=== PATIENT | female | born 1935 | race Caucasian/White ===

== ENCOUNTER → 2016-04-15 | Outpatient (CLI) | payer MEDICARE ==
[2016-04-15 08:03] LABS: CH 29.9; CHCM 32.8; HCT 44.4 % (34.0-46.0); HDW 2.35; HGB 14.3 gm/dL (11.4-16.0); MCH 29.5 pg (25.0-35.0); MCHC 32.2 g/dL (31.0-37.0); MCV 91.4 fL (80.0-100.0); Mean Platelet Volume 7.7; RBC 4.86 m/uL (3.80-5.40); RDW 13.3 % (11.5-15.5)
[2016-04-15 08:22] LABS: ALT 31 U/L (9-52); AST 30 U/L (14-36); Alkaline Phosphatase 36 U/L (38-126); Anion Gap 9 mmol/L; Blood Urea Nitrogen 17 mg/dL (7-17); Calcium 9.6 mg/dL (8.4-10.2); Carbon Dioxide 31 mmol/L (22-30); Chloride 103 mmol/L (98-107); Cholesterol 177 mg/dL (<200); Glucose 102 mg/dL (74-99); HDL Cholesterol 75 mg/dL (40-60); Non-African American GFR(MDRD) >60 (>60 ml/min/1.73 sqM); Sodium 143 mmol/L (137-145); Total Bilirubin 0.7 mg/dL (0.2-1.3); Total Protein 6.5 g/dL (6.3-8.2); Triglycerides 90 mg/dL (<150)
[2016-04-15 12:35] LABS: Hemoglobin A1C 5.6 % (4.2-6.1)
== END | disposition home or self-care (01) ==
LOC: LABWHC1 07:25
PROVIDERS: ATTEND Family Medicine
DX: I10 Essential (primary) hypertension (principal); I27.2 Other secondary pulmonary hypertension; E11.9 Type 2 diabetes mellitus without complications; E78.5 Hyperlipidemia, unspecified
CPT/HCPCS: 36415; 80053; 80061; 83036; 85027

== ENCOUNTER 2016-07-29 08:48 | Day surgery (SDC) | payer MEDICARE ==
[2016-07-29 09:31] VITALS: BP 150/76; PULSE 63; RESP 18; TEMP 97.6
--- NOTE | 2016-07-29 11:46 | US ---
ULTRASOUND GUIDED FNA CHEST WALL MASS: CLINICAL HISTORY: Palpable abnormality FINDINGS: The procedure was explained to the patient. The risks, complications, benefits and alternatives were discussed and any questions were answered. Informed consent was obtained. Patient was placed supin e on the ultrasound table and preliminary imaging demonstrated no evidence of a mass for biopsy. Biop sy therefore deferred. IMPRESSION: 1. Deferred FNA secondary to no mass seen by ultrasound. Follow-up CT scan the chest could be obtaine d for confirmation..
== END 2016-07-29 09:45 | disposition home or self-care (01) ==
LOC: RADPROMAIN 08:48
PROVIDERS: ATTEND Surgery
DX: R22.2 Localized swelling, mass and lump, trunk (principal); Z53.8 Procedure and treatment not carried out for other reasons
CPT/HCPCS: 76536

== ENCOUNTER 2016-09-04 09:42 | Day surgery (SDC) | payer MEDICARE ==
[2016-08-29 15:58] VITALS: BMI 28.3
--- NOTE | 2016-09-03 12:41 | P.GSHP ---
History of Present Illness H&P Date: 09/03/16 Chief Complaint: Right chest wall mass Patient is well known to our service. She has a history of prior bilateral breast cancer. Recently she noticed a nodule in the right chest wall. This was confirmed on physical examination. She was sent for an ultrasound-guided biopsy and unfortunately the lesion was not able to be visualized at that time. She believes the area has enlarged somewhat. Mild tenderness at times. Past Medical History Past Medical History: Asthma, Cancer, Diabetes Mellitus, Eye Disorder, GERD/ Reflux, Hyperlipidemia, Hypertension, Musculoskeletal Disorder, Sleep Apnea/CPAP /BIPAP Additional Past Medical History / Comment(s): WINST[place] BREAST CA, skin cancer, (nose) , ddd,scoliosis,uti(klebsiella pnuemoniae 10-20-13), dry eye syndrome, uses C- Pap. Developed lump on chest wall. History of Any Multi-Drug Resistant Organisms: None Reported Past Surgical History: Adenoidectomy, Appendectomy, Breast Surgery, Heart Catheterization, Hysterectomy, Orthopedic Surgery, Tonsillectomy, Tubal Ligation Additional Past Surgical History / Comment(s): left and right mastectomy, bladder suspension, [place] cataracts, bilateral rotater cuff repair. Past Anesthesia/Blood Transfusion Reactions: Previous Problems w/ Anesthesia Additional Past Anesthesia/Blood Transfusion Reaction / Comment(s): slept a lot last surgery. Past Psychological History: No Psychological Hx Reported Smoking Status: Never smoker Past Alcohol Use History: None Reported Past Drug Use History: None Reported - Past Family History Mother Family Medical History: Cancer Additional Family Medical History / Comment(s): BREAST Father Family Medical History: CVA/TIA Medications and Allergies Home Medications Medication Instructions Recorded Confirmed Type Aspirin 81 mg PO DAILY 11/15/13 08/29/16 History Atenolol 50 mg PO HS 11/15/13 08/29/16 History Calcium Carb-Vit D 250Mg-125Un 1 tab PO DAILY 11/15/13 08/29/16 History [Oscal 250+D] Cholecalciferol [Vitamin D3] 1,000 unit PO DAILY 11/15/13 08/29/16 History Denosumab [Prolia] 60 mg INJ Q182D 11/15/13 08/29/16 History Losartan-Hctz 50-12.5 mg [Hyzaar 1 tab PO DAILY 11/15/13 08/29/16 History 50-12.5] Multivitamin/Iron/Folic Acid 1 tab PO DAILY 11/15/13 08/29/16 History [Centrum Complete Multivit Tab] Simvastatin [Zocor] 20 mg PO HS 11/15/13 08/29/16 History cycloSPORINE [Restasis] 2 drop BOTH EYES DAILY 11/15/13 08/29/16 History Albuterol Sulfate [Ventolin HFA] 2 puff INHALATION QID PRN 11/23/13 08/29/16 History Artificial Tears-Hypromellose 1 drops BOTH EYES TID PRN 02/20/15 08/29/16 History [Artificial Tear Drops] Econazole Nitrate 1 applic TP DAILY PRN 02/20/15 08/29/16 History Omeprazole 40 mg PO AC-BRKFST 02/20/15 08/29/16 History Fluticasone Nasal [place] [Flonase 1 spray NASAL DAILY PRN 09/14/15 08/29/16 History Nasal [place]] Pentoxifylline [TRENtal] 400 mg PO AC-TID 07/18/16 08/29/16 History Allergies Allergy/AdvReac Type Severity Reaction Status Date / Time cefaclor [From Ceclor] Allergy Rash/Hives Verified 08/29/16 15:43 ceftriaxone sodium Allergy Unknown Verified 08/29/16 15:43 [From Rocephin] Sulfa (Sulfonamide Allergy Rash/Hives Verified 08/29/16 15:43 Antibiotics) venom-honey bee Allergy Rash/Hives Verified 08/29/16 15:43 [bee venom (honey bee)] Surgical - Exam Physical exam: General: Well-developed, well-nourished HEENT: Normocephalic, sclerae nonicteric Chest: Mass present anterior mid chest measuring 1.5 cm somewhat firm this is unrelated to the underlying rib Abdomen: Nontender, nondistended Extremities: No edema Neuro: Alert and oriented Assessment and Plan (1) Chest wall mass Narrative/Plan: Will proceed with excisional biopsy. Risks of bleeding, infection, recurrence were discussed. She understands and wishes to proceed. Status: Acute
[~2016-09-04 09:42] MED LIST: FAMOTIDINE 20 MG/2 ML VIAL IV PRN; HEPARIN SODIUM,PORCINE 5,000 UNIT/ML 1 ML VIAL SQ ONE; HYDROmorphone 1 MG/ML 1 ML SYRINGE IVP PRN; LIDOCAINE 1% 20 ML VIAL (10MG/ML) FOR IV START INTRADERMA PRN; ONDANSETRON 4 MG/2 ML VIAL IVP ONE; Pre Op ABX Message 1 EACH MISC MISCELLANE ONE
[2016-09-04 10:20] VITALS: TEMP 97.2
[2016-09-04] MEDS: LACTATED RINGERS 1,000 ML IV SCH ×2 (10:26→11:24)
[2016-09-04 10:29] LABS: Glucose,Whole Blood 91 mg/dL (75-99)
[2016-09-04] MEDS ORDERED: BUPIVACAIN-EPI 0.25%-1:200,000 30 ML VIAL SQ ONE ×2 (10:36)
[2016-09-04] MEDS ORDERED: fentaNYL (PF) 50 MCG/ML 2 ML AMP ONE (11:25)
[2016-09-04] MEDS ORDERED: PROPOFOL 10 MG/ML 20 ML VIAL IV ONE (11:25)
[2016-09-04] MEDS ORDERED: NALOXONE 0.4 MG/ML 1 ML VIAL IV PRN (12:23)
--- NOTE | 2016-09-04 12:28 | P.PCN ---
Date of Procedure: 09/04/16 Preoperative Diagnosis: Postoperative Diagnosis: Procedure(s) Performed: PREOPERATIVE DIAGNOSIS: Right chest wall mass POSTOPERATIVE DIAGNOSIS: Same PROCEDURE: Excision right chest wall mass SURGEON: Lurdes EBL: Minimal ANESTHESIA: Sedation COMPLICATIONS: None OPERATIVE PROCEDURE: Patient was placed in the operative table in the supine position. Sedated per anesthesia. The right chest was prepped and draped in usual sterile fashion. Patient had a palpable mass present along the anterior chest wall. This was roughly at the level of the third rib. A horizontal incision was made overlying the mass. The saphenous fat was dissected using electrocautery. The mass was identified and was noted to be subfascial. This was intimately associated with the pectoralis muscle. This was excised for the most part using electrocautery. The excised specimen was approximately 2 x 1 cm. There was still some additional surrounding scar tissue present. I did use ligaclips to identify the extent of our surgical excision. The specimen was sent to pathology. The subcutaneous tissues were closed using 3-0 Vicryl sutures. The skin was closed using 4-0 Monocryl sutures. Steri-Strips and sterile dressings were applied. DISPOSITION: Stable to recovery room Implants: Indications for Procedure: Operative Findings: Description of Procedure:
[2016-09-04 12:45] VITALS: PULSE 63
[2016-09-04 13:06] VITALS: BP 169/76; RESP 16
== END 2016-09-04 13:22 | disposition home or self-care (01) ==
LOC: OR 09:42
PROVIDERS: ATTEND Surgery
DX: C76.1 Malignant neoplasm of thorax (principal); R22.2 Localized swelling, mass and lump, trunk; Z85.3 Personal history of malignant neoplasm of breast; Z90.13 Acquired absence of bilateral breasts and nipples; Z85.828 Personal history of other malignant neoplasm of skin; J45.909 Unspecified asthma, uncomplicated; E11.9 Type 2 diabetes mellitus without complications; K21.9 Gastro-esophageal reflux disease without esophagitis; E78.5 Hyperlipidemia, unspecified; I10 Essential (primary) hypertension; G47.33 Obstructive sleep apnea (adult) (pediatric); Z79.82 Long term (current) use of aspirin; Z79.899 Other long term (current) drug therapy; Z88.2 Allergy status to sulfonamides; Z88.1 Allergy status to other antibiotic agents; Z91.030 Bee allergy status
CPT/HCPCS: 88305; 88342; 88341; 11602; 12031; J1644; J2405; J3010; J2704

== ENCOUNTER → 2016-09-28 | Outpatient (CLI) | payer MEDICARE ==
--- NOTE | 2016-09-30 09:03 | PE ---
Nuclear medicine PET/CT HISTORY: Breast cancer, C 50 111 Patient received 11.2 mCi F-18 FDG intravenously. Delayed scanning performed from the skull base to t he mid thighs. Localization and attenuation correction CT scan was performed. No recent exams for comparisons Neck and chest: There is no adenopathy evident. No evident lung mass. Postop changes are noted status post mastectomies. No pleural or pericardial effusion. There is a spinal curvature. At the level of patient's mastectomy site on the right there is some mild hypermetabolic uptake but no definite focal mass, SUV is 2.5. No other suspicious hypermetabolic uptake. Abdomen pelvis: No retroperitoneal adenopathy. No free fluid or pelvic adenopathy. Uptake within the rectum is thought likely to be physiologic. There is a focus of uptake seen in the right hemipelvis t hought likely to represent ureteral activity. Osseous structures: Marked degenerative disc changes are noted within the spine. Facet arthropathy is noted at multiple levels especially in the lower lumbar spine. Uptake within the shoulders thought t o be benign. IMPRESSION: Uptake in the surgical bed in the right anterior chest may be inflammatory. No other susp icious hypermetabolic uptake. Additional findings above.
== END | disposition home or self-care (01) ==
LOC: RADPETMAIN 15:59
PROVIDERS: ATTEND Internal Medicine Hematology & Oncology
DX: C50.111 Malignant neoplasm of central portion of right female breast (principal)
CPT/HCPCS: 78815; A9552

== ENCOUNTER → 2016-10-03 | Outpatient (CLI) | payer MEDICARE ==
--- NOTE | 2016-10-05 13:26 | PCN ---
80-year-old lady had been followed at the sleep center for treatment of obstructive sleep apnea hypopnea syndrome. The patient continued to use her CPAP equipment but recently developed some problem related to mostly humidity. She has collection of the water in her nasal pillow mask and sometimes water goes to her nose. She could hear some additional sounds sometimes during using her CPAP unit. I checked her CPAP unit. Pressure is 7 cm of water. Usage is 19/30 more than four hours. Average 5.1 hours. Humidity at the level of more than 5. Machine does not give me information about HI. Her sleepiness scale today is 10. MEDICATIONS: Aspirin, atenolol, Citracal, Centrum silver, losartan, omeprazole , Prolia, Pentoxifylline, Restasis, simvastatin, Ventolin inhaler, econazole, vitamin D3. During physical exam the patient in distress. BP 125/66, HR of 64, respiratory rate 16, height 5 feet 1/2 inch, weight 166, BMI 31.0, temp 97.8, oxygen saturation on room air 95%. Extremely low position of soft palate. Abdomen is slightly obese. Other physical exam normal. IMPRESSION: 1. Obstructive sleep apnea hypopnea syndrome. Patient continued to use equipment benefitting from treatment. Has some problem related to humidification. 2. Mild obesity. 3. Hypertension. 4. History of asthma. 5. Diabetes mellitus. 6. Acid reflux. 7. History of breast cancer status post bilateral mastectomy. PLAN: 1. Patient to continue to use her CPAP equipment every night for the full night. 2. Presently machine staying on the level of her head. She will put it down about a foot with the height of position of her machine. 3. I adjusted the humidity in the machine down to the level of 2. 4. If patient has any problem with the usage of CPAP or with the machine she will contact us. 5. Prescription for all necessary CPAP supplies including mask, tube, filters. Thank you very much for allowing me to participate in the management of your patient. ANGEL
== END | disposition home or self-care (01) ==
LOC: SLEEP 09:52
PROVIDERS: ATTEND Internal Medicine
DX: G47.33 Obstructive sleep apnea (adult) (pediatric) (principal); E66.9 Obesity, unspecified; I10 Essential (primary) hypertension; E11.9 Type 2 diabetes mellitus without complications; K21.9 Gastro-esophageal reflux disease without esophagitis; Z85.3 Personal history of malignant neoplasm of breast; Z90.13 Acquired absence of bilateral breasts and nipples; Z87.09 Personal history of other diseases of the respiratory system; Z79.82 Long term (current) use of aspirin

== ENCOUNTER → 2016-10-18 | Outpatient (CLI) | payer MEDICARE ==
[~2016-10-18] MED LIST changes: +DENOSUMAB 60 MG/ML 1 ML SYRINGE SQ NR; -FAMOTIDINE 20 MG/2 ML VIAL IV PRN; -HEPARIN SODIUM,PORCINE 5,000 UNIT/ML 1 ML VIAL SQ ONE; -HYDROmorphone 1 MG/ML 1 ML SYRINGE IVP PRN; -LIDOCAINE 1% 20 ML VIAL (10MG/ML) FOR IV START INTRADERMA PRN; -ONDANSETRON 4 MG/2 ML VIAL IVP ONE; -Pre Op ABX Message 1 EACH MISC MISCELLANE ONE
[2016-10-18 12:42] VITALS: BP 151/82; PULSE 80; RESP 16; TEMP 98.4
== END | disposition home or self-care (01) ==
LOC: PROCWHC3 12:31
PROVIDERS: ATTEND Family Medicine
DX: M81.0 Age-related osteoporosis without current pathological fracture (principal)
CPT/HCPCS: 96372; J0897

== ENCOUNTER → 2016-10-18 | Outpatient (CLI) | payer MEDICARE ==
[2016-10-18 07:47] LABS: CH 30.4; CHCM 33.9; HCT 43.5 % (34.0-46.0); MCHC 34.5 g/dL (31.0-37.0); Mean Platelet Volume 7.8; RBC 4.83 m/uL (3.80-5.40); RDW 13.4 % (11.5-15.5); WBC 4.8 k/uL (3.8-10.6)
[2016-10-18 08:02] LABS: ALT 23 U/L (9-52); AST 27 U/L (14-36); Alkaline Phosphatase 35 U/L (38-126); Anion Gap 10 mmol/L; Blood Urea Nitrogen 18 mg/dL (7-17); Calcium 9.6 mg/dL (8.4-10.2); Carbon Dioxide 27 mmol/L (22-30); Chloride 106 mmol/L (98-107); Cholesterol 183 mg/dL (<200); Glucose 101 mg/dL (74-99); HDL Cholesterol 81 mg/dL (40-60); Non-African American GFR(MDRD) >60 (>60 ml/min/1.73 sqM); Sodium 143 mmol/L (137-145); Total Bilirubin 0.9 mg/dL (0.2-1.3); Total Protein 6.6 g/dL (6.3-8.2); Triglycerides 95 mg/dL (<150)
== END | disposition home or self-care (01) ==
LOC: LABWHC1 07:18
PROVIDERS: ATTEND Family Medicine
DX: C50.919 Malignant neoplasm of unspecified site of unspecified female breast (principal); I10 Essential (primary) hypertension; M81.0 Age-related osteoporosis without current pathological fracture
CPT/HCPCS: 36415; 80053; 80061; 82306; 85027

== ENCOUNTER → 2017-04-21 | Outpatient (CLI) | payer MEDICARE ==
[~2017-04-21] MED LIST changes: -DENOSUMAB 60 MG/ML 1 ML SYRINGE SQ NR; +DENOSUMAB 60 MG/ML 1 ML SYRINGE SQ ONE
[2017-04-21 12:30] VITALS: BP 143/85; PULSE 60; RESP 18; TEMP 97.9
== END | disposition home or self-care (01) ==
LOC: PROCWHC3 12:14
PROVIDERS: ATTEND Family Medicine
DX: M81.0 Age-related osteoporosis without current pathological fracture (principal)
CPT/HCPCS: 96372; J0897

== ENCOUNTER → 2017-09-11 | Outpatient (CLI) | payer MEDICARE ==
--- NOTE | 2017-09-11 13:08 | SFUN ---
SLEEP CENTER FOLLOW UP NOTE DATE OF SERVICE: 09/11/2017 An 81-year-old lady has been followed in sleep center for treatment of obstructive sleep apnea-hypopnea syndrome. Patient successfully continued to use her CPAP equipment every night without any significant problems. She is getting her supplies. No snoring with the machine. [place] Sleepiness Scale is 9. MEDICATIONS: Aspirin, atenolol, Centrum Silver, , losartan hydrochlorothiazide, ketoconazole cream, Prolia, , Restasis, simvastatin, Ventolin inhaler. PHYSICAL EXAMINATION: During physical exam, patient in no distress VITAL SIGNS: BP 125/71, HR 64, RR 16, height 5 feet 1-1/2 inches, weight 163, BMI 30.2, temperature 96.8, oxygen saturation room air 95%. HEENT: PERRLA, EOMI. Oropharynx low position of soft palate. NECK: Supple, no JVD. Thyroid is not palpable. LUNGS: Clear to percussion and to auscultation. Good air exchange. No wheezing or rhonchi. HEART: S1, S2 regular. No murmurs, gallops, or rubs. ABDOMEN: Slightly obese. EXTREMITIES No clubbing or cyanosis. CLOTH FINISHING RANGE TENDER Awake, alert, and oriented X3. Cranial nerves 2 to 7 intact. There is no fasciculation or atrophy. noted. No focal deficits observed. IMPRESSION: 1. Obstructive sleep apnea-hypopnea syndrome. Patient continued to use her CPAP equipment, benefitting from treatment. 2. Mild obesity. 3. Hypertension. 4. History of asthma. 5. History of diabetes mellitus, presently her medication for diabetes was stopped. Blood sugar improved. 6. History of acid reflux. 7. History of breast cancer, status post bilateral mastectomy. 8. Status post tonsillectomy, adenoidectomy. 9. Status post total hysterectomy. 10.Status post bladder repair. 11.Status post nasal surgery for cancer. 12.Status post left shoulder surgery. 13.Status post left eye cataract surgery. PLAN: 1. Continue treatment with CPAP every night for the whole night. 2. Prescription for all necessary CPAP supplies including mask, tube, filters. 3. Watching weight. 4. Sleep hygiene with regular time in bed for at least 8 hours. 5. No driving if feeling any sleepiness. 6. Follow-up visit in 1 year or earlier if patient has any problems. Thank you very much for allowing me to participate in management of your patient. Sincerely, Darrel Brown MD, PhD, FAASM Diplomat of [employer] Digital Traffic Coordinator of [facility] [place] HALLIE / SILVIA: [phone] /
== END | disposition home or self-care (01) ==
LOC: SLEEP 11:29
PROVIDERS: ATTEND Internal Medicine
DX: G47.33 Obstructive sleep apnea (adult) (pediatric) (principal); E66.9 Obesity, unspecified; I10 Essential (primary) hypertension; J45.909 Unspecified asthma, uncomplicated; E11.9 Type 2 diabetes mellitus without complications; K21.9 Gastro-esophageal reflux disease without esophagitis; Z85.3 Personal history of malignant neoplasm of breast; Z79.899 Other long term (current) drug therapy; Z90.13 Acquired absence of bilateral breasts and nipples; Z79.82 Long term (current) use of aspirin; Z90.89 Acquired absence of other organs; Z98.890 Other specified postprocedural states; Z99.89 Dependence on other enabling machines and devices; Z90.710 Acquired absence of both cervix and uterus; Z85.9 Personal history of malignant neoplasm, unspecified; Z68.30 Body mass index [BMI] 30.0-30.9, adult; Z79.51 Long term (current) use of inhaled steroids

== ENCOUNTER → 2017-10-17 | Outpatient (CLI) | payer MEDICARE ==
[2017-10-17 07:53] LABS: Basophils % (A) 0 %; Eosinophils # (A) 0.1 k/uL (0-0.7); Eosinophils % (A) 1 %; HCT 42.6 % (34.0-46.0); HGB 14.2 gm/dL (11.4-16.0); Lymphocytes # (A) 1.1 k/uL (1.0-4.8); Lymphocytes % (A) 19 %; MCH 30.6 pg (25.0-35.0); MCHC 33.2 g/dL (31.0-37.0); Mean Platelet Volume 6.7; Monocytes # (A) 0.4 k/uL (0-1.0); Monocytes % (A) 7 %; Neutrophils # (A) 4.2 k/uL (1.3-7.7); Neutrophils % (A) 71 %; Platelet Count 222 k/uL (150-450); RBC 4.63 m/uL (3.80-5.40); RDW 13.9 % (11.5-15.5); WBC 5.9 k/uL (3.8-10.6)
[2017-10-17 08:01] LABS: ALT 23 U/L (9-52); AST 21 U/L (14-36); Albumin 3.9 g/dL (3.5-5.0); Alkaline Phosphatase 28 U/L (38-126); Anion Gap 5 mmol/L; Blood Urea Nitrogen 21 mg/dL (7-17); Calcium 9.6 mg/dL (8.4-10.2); Carbon Dioxide 31 mmol/L (22-30); Chloride 103 mmol/L (98-107); Cholesterol 203 mg/dL (<200); Glucose 92 mg/dL (74-99); HDL Cholesterol 103 mg/dL (40-60); LDL Cholesterol,Calculated 84 mg/dL (0-99); Potassium 3.8 mmol/L (3.5-5.1); Sodium 139 mmol/L (137-145); Total Bilirubin 0.7 mg/dL (0.2-1.3); Total Protein 6.1 g/dL (6.3-8.2); Triglycerides 78 mg/dL (<150)
[2017-10-17 08:17] LABS: T4, Free (Free Thyroxine) 0.92 ng/dL (0.78-2.19)
[2017-10-17 18:54] LABS: Hemoglobin A1C 5.9 % (4.0-6.0)
== END | disposition home or self-care (01) ==
LOC: LABWHC1 07:25
PROVIDERS: ATTEND Family Medicine
DX: E11.9 Type 2 diabetes mellitus without complications (principal); E78.5 Hyperlipidemia, unspecified; I10 Essential (primary) hypertension
CPT/HCPCS: 36415; 80053; 80061; 83036; 84439; 84443; 85025

== ENCOUNTER → 2018-06-19 | Outpatient (CLI) | payer MEDICARE ==
[~2018-06-19] MED LIST changes: +DENOSUMAB 60 MG/ML 1 ML SYRINGE SQ NR; -DENOSUMAB 60 MG/ML 1 ML SYRINGE SQ ONE
[2018-06-19 12:23] VITALS: BP 148/80; PULSE 65; RESP 16; TEMP 97.5
== END | disposition home or self-care (01) ==
LOC: PROCWHC3 12:05
PROVIDERS: ATTEND Family Medicine
DX: M81.0 Age-related osteoporosis without current pathological fracture (principal)
CPT/HCPCS: 96372; J0897

== ENCOUNTER → 2018-08-12 | Outpatient (CLI) | payer MEDICARE ==
--- NOTE | 2018-08-12 16:13 | PN ---
PROGRESS NOTE DATE OF SERVICE: 08/12/2018 82-year-old lady has been followed in Sleep Center for treatment of obstructive sleep apnea-hypopnea syndrome. Patient continued to use her CPAP equipment successfully every night for the whole night. No snoring with the machine. [place] Sleepiness Scale today is 9. MEDICATIONS: Aspirin, atenolol, Centrum Silver, losartan, Ketoconazole cream, Restasis, Simvastatin, Ventolin inhaler. PHYSICAL EXAM: Patient in no distress. BP is 136/68, HR 62, RR 16, height 5 feet 1 inch, weight 155 pounds. Body mass index 29.2, temperature 97.1, oxygen saturation at room air 96%. Oropharynx low position of soft palate. NECK Supple, no JVD. Thyroid is not palpable. LUNGS Clear to percussion and to auscultation. Good air exchange. No wheezing or rhonchi. HEART S1, S2 regular. No murmurs, gallops, or rubs. ABDOMEN Soft and nontender. Bowel sounds are present. No organomegaly appreciated. EXTREMITIES No clubbing or cyanosis. MAP MOUNTER Awake, alert, and oriented X3. Cranial nerves 2 to 7 intact. There is no fasciculation or atrophy. noted. No focal deficits observed. IMPRESSION: 1. Obstructive sleep apnea-hypopnea syndrome. Patient continued to use her CPAP equipment benefitting from treatment. The patient does not have indicator for apnea-hypopnea index. 2. Hypertension. 3. History of asthma. 4. History of diabetes mellitus, presently not on medications for diabetes. Blood sugar improved. 5. History of acid reflux. 6. History of breast carcinoma status post bilateral mastectomy. 7. Status post tonsillectomy and adenoidectomy. 8. Status post total hysterectomy. 9. Status post bladder repair. 10.Status post nasal surgery for cancer. 11.Status post left shoulder surgery. 12.Status post left eye cataract surgery. PLAN: 1. Patient will continue to use CPAP equipment every night. 2. Prescription for new CPAP unit with a pressure of 7 cm of water average. 3. Losing weight. 4. Sleep hygiene with regular time in bed for at least 8 hours. 5. No driving if feeling sleepiness. 6. I will see patient in 1 month after she will get new CPAP unit to evaluate clinical response on treatment and check apnea-hypopnea index reading. Thank you very much for allowing me to participate in management of your patient. Sincerely, Darrel Brown MD, PhD, FAASM Diplomat of [employer] Sub Assembly Team Worker of [facility] [place] MMMAKAYLA / SILVIA: [phone] /
== END | disposition home or self-care (01) ==
LOC: SLEEP 13:47
PROVIDERS: ATTEND Internal Medicine
DX: G47.33 Obstructive sleep apnea (adult) (pediatric) (principal); I10 Essential (primary) hypertension; Z87.09 Personal history of other diseases of the respiratory system; Z86.39 Personal history of other endocrine, nutritional and metabolic disease; Z87.19 Personal history of other diseases of the digestive system; Z85.3 Personal history of malignant neoplasm of breast; Z99.89 Dependence on other enabling machines and devices; Z90.13 Acquired absence of bilateral breasts and nipples; Z90.09 Acquired absence of other part of head and neck; Z90.710 Acquired absence of both cervix and uterus; Z98.42 Cataract extraction status, left eye; Z98.890 Other specified postprocedural states; Z79.82 Long term (current) use of aspirin; Z79.899 Other long term (current) drug therapy

== ENCOUNTER → 2018-12-08 | Outpatient (CLI) | payer MEDICARE ==
--- NOTE | 2018-12-08 10:39 | BD ---
EXAMINATION TYPE: Axial Bone Density DATE OF EXAM: 12/08/2018 COMPARISON: 04/30/2017 CLINICAL HISTORY: C 50.111, Z 79.890 Height: 62 Weight: 146.8 FRAX RISK QUESTIONS: Alcohol (3 or more units per day): no Family History (Parent hip fracture): no Glucocorticoids (More than 3mos): no (Ex: prednisone, prednisolone, methylprednisolone, dexamethasone, and hydrocortisone). History of Fracture in Adulthood: no Secondary Osteoporosis: 1. Type 1 Diabetes: no 2. Hyperthyroidism: no 3. Menopause before 45: no 4. Malnutrition: no 5. Chronic liver disease: no Rheumatoid Arthritis: yes Current Tobacco Use: no RISK FACTORS HISTORY OF: Hip Fracture (Right/Left): right leg/hip When: as a child Surgery to Spine/Hip(right/left)/Wrist (right/left): no Family History of Osteoporosis: no Active: yes Diet low in dairy products/other sources of calcium: no Postmenopausal woman: Lost more than 2 inches in height since high school: yes MEDICATIONS: atenolol, femara, aricept, aspirin, vitamins, losartan, restasis, simvastatin, inhaler Osteoporosis Medications: prolia How Lon months Additional History: bradley breast cancer 1992and 2008 EXAM MEASUREMENTS: Bone mineral densitometry was performed using the Pie Digital System. Bone mineral density as measured about the Lumbar spine is: ----- L1-L4(G/cm2): 1.360 T Score Values are as follows: ----- L2: -0.4 ----- L3: 3.8 ----- L4: 0.8 ----- L1-L4: 1.5 Bone mineral density has: decreased -1.4 % since study of: 04.30.2017 Bone mineral density about the L hip (g/cm2): 0.907 T Score values are as follows: -----L Neck: -0.9 -----L Total: -1.0 Bone mineral density has: decreased -3.2 % since study of: 04.30.2017 IMPRESSION: Normal (Values between +1 and -1 indicate normal bone mass). Consider repeating this study in 5 year s or sooner if there is some new clinical indication. NOTE: T-SCORE=SD OF THE YOUNG ADULT MEAN.
== END ==
LOC: RADBDWWP 08:03
PROVIDERS: ATTEND Internal Medicine Hematology & Oncology
DX: C50.111 Malignant neoplasm of central portion of right female breast (principal); N95.1 Menopausal and female climacteric states; Z79.890 Hormone replacement therapy
CPT/HCPCS: 77080

== ENCOUNTER → 2018-12-18 | Outpatient (CLI) | payer MEDICARE ==
--- NOTE | 2018-12-18 16:26 | XR ---
EXAMINATION TYPE: XR Hip Bilateral and AP pelvis DATE OF EXAM: 12/18/2018 COMPARISON: NONE HISTORY: Pain and osteoporosis TECHNIQUE: A single AP view of the pelvis is obtained. Two views of the bilateral hip are obtained. FINDINGS: There is a scoliotic curvature in the lumbar spine. Dense vascular calcifications are note d in aortoiliac distribution. Bone mineralization is reduced. There is no acute fracture/dislocation evident in the pelvis. The hip and sacroiliac joints appear symmetric and unremarkable. The overlyi ng soft tissue appears unremarkable. Two views of the lateral hips show no acute fracture or dislocation. No focal lytic or sclerotic les ion seen in the proximal bilateral femurs. The overlying soft tissue is unremarkable. IMPRESSION: There is no acute fracture or dislocation in the pelvis or bilateral hips. MRI of the kee mbar spine, hips may be of benefit.
== END | disposition home or self-care (01) ==
LOC: LABWHC1 11:35
PROVIDERS: ATTEND Nurse Practitioner Adult Health
DX: C50.111 Malignant neoplasm of central portion of right female breast (principal); E11.9 Type 2 diabetes mellitus without complications; J45.909 Unspecified asthma, uncomplicated
CPT/HCPCS: 73521

== ENCOUNTER → 2018-12-21 | Outpatient (CLI) | payer MEDICARE ==
[2018-12-21 11:56] VITALS: BP 148/72; PULSE 56; RESP 15; TEMP 97.5
== END ==
LOC: PROCWHC3 11:51
PROVIDERS: ATTEND Family Medicine
DX: M81.0 Age-related osteoporosis without current pathological fracture (principal)
CPT/HCPCS: 96372; J0897

== ENCOUNTER → 2019-04-30 | Outpatient (CLI) | payer MEDICARE ==
[2019-04-30 18:20] LABS: Chol/HDL Ratio 2.08; LDL Cholesterol,Calculated 83.4 mg/dL (0.0-131.0); VLDL Calculation 12.6 mg/dL (5.00-40.00)
== END | disposition home or self-care (01) ==
LOC: LABWHC1 07:23
PROVIDERS: ATTEND Internal Medicine Cardiovascular Disease
DX: E78.2 Mixed hyperlipidemia (principal)
CPT/HCPCS: 36415; 80061; 84450; 84460

== ENCOUNTER → 2020-01-06 | Outpatient (CLI) | payer MEDICARE ==
--- NOTE | 2020-01-07 06:08 | SFUN ---
SLEEP CENTER FOLLOW UP NOTE DATE OF SERVICE: 01/06/2020 An 84-year-old lady has been followed in Sleep Center for treatment of obstructive sleep apnea-hypopnea syndrome. Patient continued to use her CPAP equipment. According to her, she sleeps well. [place] Sleepiness Scale during the day increased to 11. I checked her CPAP unit. Range of the pressure 5-10. Average pressure 9.9. Subsequently, it is very close to the maximal pressure. Usage is 30 out of 30 nights but only 8/30 nights more than 4 hours. Average usage is 3.7 hours per night. Leak is 40 L/minute, which is high. Apnea-hypopnea index reading 35.2, which is very high level of apnea-hypopnea index. MEDICATIONS: Aricept 10 mg at night, aspirin 81 mg once daily, atenolol 50 mg once daily, losartan hydrochlorothiazide once daily, pentoxifylline 400 mg 3 times a day, Restasis eyedrops, simvastatin 20 mg at night. PHYSICAL EXAMINATION: GENERAL: lady without distress. VITAL SIGNS: BP 153/71, HR 59, RR 16, height 5 feet 1 inch, weight 142.4, BMI 26.8, temperature 98.0, oxygen saturation at room air 98%. HEENT: PERRLA, EOMI. Evaluation of oropharynx showed low position of soft palate. NECK: Supple, no JVD. Thyroid is not palpable. LUNGS: Clear to percussion and to auscultation. Good air exchange. No wheezing or rhonchi. HEART: S1, S2 regular. No murmurs, gallops, or rubs. ABDOMEN: Soft and nontender. Bowel sounds are present. No organomegaly appreciated. EXTREMITIES: No clubbing or cyanosis. CERTIFIED MASSAGE THERAPIST: Awake, alert, and oriented X3. Cranial nerves 2 to 7 intact. There is no fasciculation or atrophy. noted. No focal deficits observed. IMPRESSION: 1. Obstructive sleep apnea-hypopnea syndrome. The patient using equipment every night but not always for a long period of time. Apnea-hypopnea index significantly increased. 2. Hypertension. 3. History of asthma. 4. History of diabetes mellitus. 5. History of acid reflux. 6. History of breast carcinoma, status post bilateral mastectomy. 7. Status post tonsillectomy and adenoidectomy. 8. Status post total hysterectomy. 9. Status post bladder repair. 10.Status post nasal surgery for cancer. 11.Status post left shoulder surgery. 12.Status post left eye cataract surgery. PLAN: 1. I changed regimen in the machine, automatic regimen with range of the pressure 5 to 15. 2. Patient will continue to use PAP equipment every night for the whole night. 3. Sleep hygiene with regular time in bed for at least 7-1/2 to 8 hours. 4. Precautions related to driving. No driving if feeling sleepiness. 5. I will maintain all necessary prescription for PAP supplies including mask, tube, filters. 6. Watching weight. 7. No driving if feeling sleepiness. 8. Follow-up visit in 2 to 3 months or earlier if patient has any problems. Thank you very much for allowing me to participate in management of your patient. Sincerely, Darrel Brown MD, PhD, FAASM Diplomat of [employer] Cut Off Machine Operator of [facility] [place] MMODL / SHANEKAN: [phone] /
== END | disposition home or self-care (01) ==
LOC: SLEEP 14:18
PROVIDERS: ATTEND Internal Medicine
DX: G47.33 Obstructive sleep apnea (adult) (pediatric) (principal); I10 Essential (primary) hypertension; Z99.89 Dependence on other enabling machines and devices; Z87.09 Personal history of other diseases of the respiratory system; Z87.19 Personal history of other diseases of the digestive system; Z90.710 Acquired absence of both cervix and uterus; Z90.13 Acquired absence of bilateral breasts and nipples; Z90.49 Acquired absence of other specified parts of digestive tract; Z98.890 Other specified postprocedural states

== ENCOUNTER 2020-02-20 10:57 | Emergency (ER) | payer MEDICARE ==
[2020-02-20 11:05] VITALS: RESP 18; TEMP 97.9
[2020-02-20] MEDS ORDERED: MORPHINE SULFATE 4 MG/ML SYRINGE IM STA (11:16)
--- NOTE | 2020-02-20 11:19 | ED ---
Fall HPI - General Chief Complaint: Fall Stated Complaint: Fall Time Seen by Provider: 02/20/20 11:04 Source: patient, RN notes reviewed, old records reviewed Mode of arrival: EMS - History of Present Illness Initial Comments: Patient is a pleasant 84-year-old female who presents to the emergency department today after she slipped and fell in the shower. Patient reports that she slipped on the tub that landing on her left shoulder. She complains of no significant head injury does complain of minor neck pain and pain with range of motion of left shoulder. Patient reports that she's had no history of blood thinners. She reports shoulder injury from years ago. She states that she's had no other complaints. - Related Data Home Medications Medication Instructions Recorded Confirmed Aspirin 81 mg PO DAILY 11/15/13 12/21/18 Atenolol 50 mg PO HS 11/15/13 12/21/18 Denosumab [Prolia] 60 mg INJ Q182D 11/15/13 12/21/18 Losartan-Hctz 50-12.5 mg [Hyzaar 1 tab PO DAILY 11/15/13 12/21/18 50-12.5] Multivitamin/Iron/Folic Acid 1 tab PO DAILY 11/15/13 12/21/18 [Centrum Complete Multivit Tab] Simvastatin [Zocor] 20 mg PO HS 11/15/13 12/21/18 cycloSPORINE [Restasis] 2 drop BOTH EYES DAILY 11/15/13 12/21/18 Artificial Tears-Hypromellose 1 drops BOTH EYES TID PRN 02/20/15 12/21/18 [Artificial Tear Drops] Pentoxifylline [TRENtal] 400 mg PO AC-TID 07/18/16 12/21/18 Acetaminophen [Tylenol Arthritis] 650 mg PO Q8HR PRN 06/19/18 12/21/18 Donepezil [Aricept] 10 mg PO HS 06/19/18 12/21/18 Letrozole [Femara] 2.5 mg PO DAILY 06/19/18 12/21/18 Albuterol Sulfate [Proair Hfa] 1 - 2 puff INHALATION Q6HR PRN 12/21/18 12/21/18 Cholecalciferol (Vitamin D3) 2,000 unit PO DAILY 12/21/18 12/21/18 [Vitamin D3] Previous Rx's Medication Instructions Recorded Acetaminophen-Codeine 300-30mg 1 tab PO Q6H PRN 3 Days #12 tablet 02/20/20 [Tylenol w/codeine #3] Allergies Allergy/AdvReac Type Severity Reaction Status Date / Time cefaclor [From Ceclor] Allergy Rash/Hives Verified 02/20/20 12:32 ceftriaxone sodium Allergy Unknown Verified 02/20/20 12:32 [From Rocephin] Sulfa (Sulfonamide Allergy Rash/Hives Verified 02/20/20 12:32 Antibiotics) venom-honey bee Allergy Rash/Hives Verified 02/20/20 12:32 [bee venom (honey bee)] Review of Systems ROS Statement: Those systems with pertinent positive or pertinent negative responses have been documented in the HPI. ROS Other: All systems not noted in ROS Statement are negative. Past Medical History Past Medical History: Asthma, Cancer, Diabetes Mellitus, Eye Disorder, GERD/Reflux, Hyperlipidemia, Hypertension, Musculoskeletal Disorder, Sleep Apnea/CPAP/BIPAP Additional Past Medical History / Comment(s): WINST[place] BREAST CA, skin cancer, (nose), ddd,scoliosis,uti(klebsiella pnuemoniae 10-20-13), dry eye syndrome, uses C-Pap. Developed lump on chest wall.- august 2016- radiation treatments History of Any Multi-Drug Resistant Organisms: None Reported Past Surgical History: Adenoidectomy, Appendectomy, Breast Surgery, Heart Catheterization, Hysterectomy, Orthopedic Surgery, Tonsillectomy, Tubal Ligation Additional Past Surgical History / Comment(s): left and right mastectomy, bladder suspension, [place]ston cataracts, bilateral rotater cuff repair. Past Anesthesia/Blood Transfusion Reactions: Previous Problems w/ Anesthesia Additional Past Anesthesia/Blood Transfusion Reaction / Comment(s): slept a lot last surgery. Past Psychological History: No Psychological Hx Reported Smoking Status: Never smoker Past Alcohol Use History: None Reported Past Drug Use History: None Reported - Past Family History Mother Family Medical History: Cancer Additional Family Medical History / Comment(s): BREAST Father Family Medical History: CVA/TIA General Exam - General Exam Comments Initial Comments: 84-year-old female. Alert and oriented 3. No distress. Limitations: no limitations General appearance: alert, in no apparent distress Head exam: Present: atraumatic, normocephalic, normal inspection Eye exam: Present: normal appearance, PERRL, EOMI. Absent: scleral icterus, conjunctival injection, periorbital swelling ENT exam: Present: normal exam, mucous membranes moist Neck exam: Present: normal inspection. Absent: tenderness, meningismus, lymphadenopathy Respiratory exam: Present: normal lung sounds bilaterally. Absent: respiratory distress, wheezes, rales, rhonchi, stridor Cardiovascular Exam: Present: regular rate GI/Abdominal exam: Present: soft, normal bowel sounds. Absent: distended, te nderness, guarding, rebound, rigid Extremities exam: Present: normal inspection, full ROM, normal capillary refill. Absent: tenderness, pedal edema, joint swelling, calf tenderness Left Shoulder Exam: Present: swelling. Absent: normal inspection, full ROM ( is pain with abduction unable to lift greater than 15 degrees) Upper Arm exam: Present: normal inspection, full ROM Elbow exam: Present: normal inspection, full ROM Forearm Wrist exam: Present: normal inspection, full ROM Back exam: Present: normal inspection Neurological exam: Present: alert, oriented X3, CN II-XII intact Psychiatric exam: Present: normal affect, normal mood Skin exam: Present: warm, dry, intact, normal color. Absent: rash Course Vital Signs 02/20/20 11:03 Temperature 97.9 F Pulse Rate 75 Respiratory 18 Rate Blood Pressure 177/82 O2 Sat by Pulse 96 Oximetry Procedures - Orthopedic Splinting/Casting Injury #1 Side: left Upper Extremity Injury Location: shoulder Upper Extremity Immobilizer: sling/shoulder immobilizer Additional Comments: Patient is reevaluated and neurovascularly intact. Cap refill less than 2 seconds. Full range of motion and inside meter tester strength of left hand. Medical Decision Making - Medical Decision Making 84-year-old female presents to return today after trip and fall in her shower landing on her left shoulder. She does have pain with any range of motion of the left shoulder. She also been some minor neck pain. CT of the brain and C- spine reviewed and negative for acute process. Patient's shoulder x-ray on the left shoulder was negative for acute fracture. There is some concern for chronic rotator cuff tear. Discusses been clinically be related to her acute fall with pain with any range of motion. I discussed Patient is follow-up with sales and in home delivery specialist. I discussed return parameters. - Radiology Data Radiology results: report reviewed No acute fracture dislocation evident in left shoulder x-ray. Chronic appearing elevation of left humeral head with her for chronic rotator cuff tear. General changes in the greater tuberosity EC joint. Visualized ribs are intact and unremarkable. Overall impression no acute fracture dislocation and shoulder. CT of the brain shows age-related atrophy and chronic small vessel ischemic change without acute intracranial process seen at this time. C-spine shows no evidence for acute fracture or subluxation. Disposition Clinical Impression: Fall, Left shoulder pain Disposition: HOME SELF-CARE Condition: Good Instructions (If sedation given, give patient instructions): Rotator Cuff Injury (ED) Additional Instructions: Please use medication as discussed. Patient advsied to sleep upright in a recliner. Please follow up with orthopedic doctor tomorrow. Please return to the emergency room if your symptoms increase or worsen or for any other concerns. Prescriptions: Acetaminophen-Codeine 300-30mg [Tylenol w/codeine #3] 1 tab PO Q6H PRN 3 Days #12 tablet PRN Reason: Pain Is patient prescribed a controlled substance at d/c from ED?: No Referrals: Omid Oneil DO [Primary Care Provider] - 1-2 days Chuck Bruce PAC [PHYSICIAN RN MOBILE] - 1-2 days Rajesh Horton DO [Doctor of Osteopathic Medicine] - 1-2 days Time of Disposition: 12:33
--- NOTE | 2020-02-20 12:13 | CT ---
EXAMINATION TYPE: CT brain aldo rodríguez DATE OF EXAM: 02/20/2020 COMPARISON: 12/26/2009 HISTORY: headache, neck pain, dizziness CT DLP: 1362.[address] of the brain was performed. The ventricles, basal cisterns and sulci overlying the cerebral convexities demonstrate mild enlargem ent. There is no evidence for intracranial hemorrhage or sulcal effacement. There is decreased attenuatio n about the periventricular white matter and deep white matter of both cerebral hemispheres, compatib le with chronic small vessel ischemia. No mass effects are seen. If symptoms persist consider MRI. Osseous calvarium is intact. IMPRESSION: 1. Age related atrophic and chronic small vessel ischemic change without acute intracranial process seen at this time. CT Cervical Spine: Unenhanced CT of the cervical spine was performed with bone and soft tissue window settings submitted . Coronal and sagittal reconstruction is obtained. There is normal alignment and prevertebral soft tissues. No evidence for acute cervical fracture . Se darrin degenerative disc disease and spondylosis. Biapical scarring. IMPRESSION: 1. No evidence for acute fracture or subluxation of the cervical spine.
--- NOTE | 2020-02-20 12:14 | XR ---
EXAMINATION TYPE: XR shoulder complete LT DATE OF EXAM: 02/20/2020 CLINICAL HISTORY: pain COMPARISON: NONE TECHNIQUE: Three views of the left shoulder are obtained. FINDINGS: There is no acute fracture/dislocation evident. Chronic appearing elevation left humeral h ead likely reflects chronic rotator cuff tear. Degenerative change of the greater tuberosity and AC j oint. The visualized ribs are intact and unremarkable. IMPRESSION: 1. There is no acute fracture or dislocation. ICD 10 NO FRACTURE, INITIAL EVALUATION
[2020-02-20] MEDS ORDERED: ACET/COD 300 MG/30 MG STARTER PACK 6 TAB BTL PO STA (12:34)
[2020-02-20 13:25] VITALS: BP 170/81; PULSE 74
== END 2020-02-20 13:45 | disposition home or self-care (01) ==
LOC: EC 10:57
DX: M54.2 Cervicalgia (principal); M25.512 Pain in left shoulder; K21.9 Gastro-esophageal reflux disease without esophagitis; J45.909 Unspecified asthma, uncomplicated; E78.5 Hyperlipidemia, unspecified; I10 Essential (primary) hypertension; G47.33 Obstructive sleep apnea (adult) (pediatric); Z79.899 Other long term (current) drug therapy; Z99.89 Dependence on other enabling machines and devices; Z95.5 Presence of coronary angioplasty implant and graft; Z98.42 Cataract extraction status, left eye; Z98.41 Cataract extraction status, right eye; Z90.13 Acquired absence of bilateral breasts and nipples; Z90.49 Acquired absence of other specified parts of digestive tract; Z90.89 Acquired absence of other organs; Z85.3 Personal history of malignant neoplasm of breast; Z85.828 Personal history of other malignant neoplasm of skin; Z92.3 Personal history of irradiation; W18.2XXA Fall in (into) shower or empty bathtub, initial encounter; Y93.E1 Activity, personal bathing and showering; Y92.002 Bathroom of unspecified non-institutional (private) residence as the place of occurrence of the external cause; Z88.1 Allergy status to other antibiotic agents; Z88.2 Allergy status to sulfonamides; Z91.030 Bee allergy status
CPT/HCPCS: 73030; 72125; 70450; 99284; 96372; J2270

== ENCOUNTER → 2020-06-22 | Outpatient (CLI) | payer MEDICARE ==
--- NOTE | 2020-06-22 15:39 | SFUN ---
SLEEP CENTER FOLLOW UP NOTE DATE OF SERVICE: 06/22/2020 This 84-year-old year old lady has been followed in Sleep Center for treatment of obstructive sleep apnea-hypopnea syndrome. Patient continues to use her CPAP equipment every night for the whole night. No snoring with CPAP. [place] Sleepiness Scale is slightly increased to 11. I checked her CPAP unit. It is in automatic regimen, usage is 30/30 nights for more than 4 hours. Average usage 8.4 hours. Average pressure 7.4 cm of water. Leak is quite high at 38 L/minute, but apnea-hypopnea index is only 1.1, which is absolutely perfect. This is a significant improvement of the apnea-hypopnea index as compared with the last visit. MEDICATIONS: 1. Aricept 10 mg once a day at night. 2. Atenolol 50 mg once a day. 3. Aspirin 81 mg once a day. 4. Losartan/hydrochlorothiazide once a day. 5. Pentoxifylline 400 mg 3 times a day. 6. Restasis eyedrops. 7. Simvastatin 20 mg once a day in the evening. PHYSICAL EXAMINATION: GENERAL: A pleasant patient in no distress. VITAL SIGNS: BP 162/89, HR 62, RR 15, height 5 feet 1-3/4 inches, weight 142 pounds, body mass index 26.2, temperature 97.7, oxygen saturation at room air 98%. HEENT: PERRLA, EOMI. Evaluation of oropharynx showed tongue protrudes midline. Low position of soft palate. NECK: Supple. No JVD. Thyroid is not palpable. LUNGS: Clear to percussion and to auscultation. Good air exchange. No wheezing or rhonchi. HEART: S1, S2 regular. No murmurs, gallops or rubs. ABDOMEN: Soft and nontender. Bowel sounds are present. No organomegaly appreciated. EXTREMITIES: No clubbing or cyanosis. ASSISTANT GOLF COACH: Awake, alert, and oriented X3. Cranial nerves 2 to 7 intact. There is no fasciculation or atrophy. noted. No focal deficits observed. IMPRESSION: 1. Obstructive sleep apnea-hypopnea syndrome. Patient demonstrated great compliance with treatment, benefitting from treatment; normal respiration on CPAP. 2. Hypertension. 3. History of asthma. 4. History of diabetes mellitus. 5. Acid reflux. 6. History of breast carcinoma, status post bilateral mastectomy. 7. Status post tonsillectomy and adenoidectomy. 8. Status post total hysterectomy. 9. Status post bladder repair. 10.Status post nasal surgery for cancer. 11.Status post left shoulder surgery. 12.Status post left eye surgery for cataract. PLAN: 1. Patient will continue to use PAP equipment every night for the whole night. 2. Sleep hygiene with regular time in bed for at least 7-1/2 to 8 hours. 3. Precautions related to driving. No driving if feeling sleepiness. 4. I will maintain all necessary prescription for PAP supplies including mask, tube, filters. 5. Watching weight. 6. Follow-up visit in 6 months or earlier if patient has any problems. Thank you very much for allowing me to participate in the management of your patient. Sincerely, Darrel Brown MD, PhD, FAASM Diplomat of [place] [employer] [place] [employer] Mud Grinder of [facility] [place] MMODL / IJN: [id number] /
== END | disposition home or self-care (01) ==
LOC: SLEEP 14:08
PROVIDERS: ATTEND Internal Medicine
DX: G47.33 Obstructive sleep apnea (adult) (pediatric) (principal); I10 Essential (primary) hypertension; J45.909 Unspecified asthma, uncomplicated; E11.9 Type 2 diabetes mellitus without complications; K21.9 Gastro-esophageal reflux disease without esophagitis; Z85.3 Personal history of malignant neoplasm of breast; Z90.09 Acquired absence of other part of head and neck; Z98.890 Other specified postprocedural states; Z90.710 Acquired absence of both cervix and uterus; Z90.10 Acquired absence of unspecified breast and nipple

== ENCOUNTER → 2020-07-31 | Outpatient (CLI) | payer MEDICARE | END | disposition home or self-care (01) | LOC: LABWHC1 15:51 | PROVIDERS: ATTEND Family Medicine | DX: Z20.822 Contact with and (suspected) exposure to COVID-19 (principal) ==

== ENCOUNTER → 2020-12-28 | Outpatient (CLI) | payer MEDICARE ==
--- NOTE | 2020-12-28 20:50 | SFUN ---
SLEEP CENTER FOLLOW UP NOTE DATE OF SERVICE: 12/28/2020 This 85-year-old lady has been followed in Sleep Center for treatment of obstructive sleep apnea-hypopnea syndrome. The patient continues to use her CPAP equipment every night and is getting her supplies, according to her, but she does not remember the name of the [employer] company that she is using. [place] Sleepiness Scale today is 6. I checked the patient's CPAP unit. The air filter is old and needs to be replaced immediately. It is in automatic regimen, range of the pressure 5-15 cm of water. Average pressure 7.6 cm of water. Usage is every night for more than 4 hours, average 8.2 hours per night. Leak is 38 L/minute, which is slightly high. At the same time, apnea-hypopnea index is only 1.9, which is totally perfect. MEDICATIONS: 1. Aricept 10 mg once a day. 2. Aspirin 81 mg once a day. 3. Atenolol 50 mg once a day. 4. Losartan 50 mg once a day. 5. 400 mg 3 times a day. 6. ProAir inhaler 2 puffs every 4 hours. 7. Restasis eyedrops. 8. Simvastatin 20 mg once a day. 9. Femara 2.5 mg once a day. PHYSICAL EXAMINATION: GENERAL: Pleasant patient in no distress. VITAL SIGNS: BP 160/60, HR 60, RR 12, height 5 feet 1-1/2 inch, weight 146.8, body mass index 27.1. The patient's weight increased by 4 pounds since her previous visit. Temperature 96.9, oxygen saturation at room air 96%. HEENT: PERRLA, EOMI, evaluation of oropharynx showed tongue protrudes midline. NECK: Supple, no JVD. Thyroid is not palpable. LUNGS: Clear to percussion and to auscultation. Good air exchange. No wheezing or rhonchi. HEART: S1, S2 regular. No murmurs, gallops, or rubs. ABDOMEN: Soft and nontender. Bowel sounds are present. No organomegaly appreciated. EXTREMITIES: No clubbing or cyanosis. SERVICE TECHNICIAN COPIER: Awake, alert, and oriented X3. Cranial nerves 2 to 7 intact. There is no fasciculation or atrophy. noted. No focal deficits observed. IMPRESSION: 1. Obstructive sleep apnea-hypopnea syndrome. Patient demonstrated 100% compliance with treatment, benefitting from treatment. 2. Hypertension. 3. Memory problems. 4. History of asthma. 5. History of diabetes mellitus. 6. Acid reflux. 7. History of breast carcinoma, status post bilateral mastectomy. 8. Status post tonsillectomy and adenoidectomy. 9. Status post total hysterectomy. 10.Status post bladder repair. 11.Status post nasal surgery for cancer. 12.Status post left shoulder surgery. 13.Status post left eye surgery for cataract. PLAN: 1. To replace air filter immediately. I wrote a prescription for all necessary supplies and it was sent to the 2. Patient will continue to use PAP equipment every night for the whole night. 3. Sleep hygiene with regular time in bed for at least 7-1/2 to 8 hours. 4. Precautions related to driving. No driving if feeling sleepiness. 5. I will maintain all necessary prescription for PAP supplies including mask, tube, filters. 6. Watching weight. 7. Follow-up visit in 6 months or earlier if patient has any problems. I spent 30 minutes with the patient and documentation. Thank you very much for allowing me to participate in the management of your patient. Sincerely, Darrel Brown MD, PhD, FAASM Diplomat of [place] [employer] Sleep Medicine Board of [employer] Skip Load Driver of [facility] [place] HALLIE / SILVIA: [id number] /
== END | disposition home or self-care (01) ==
LOC: SLEEP 11:26
PROVIDERS: ATTEND Internal Medicine
DX: G47.33 Obstructive sleep apnea (adult) (pediatric) (principal); I10 Essential (primary) hypertension; E11.9 Type 2 diabetes mellitus without complications; Z82.5 Family history of asthma and other chronic lower respiratory diseases; K21.9 Gastro-esophageal reflux disease without esophagitis; Z85.3 Personal history of malignant neoplasm of breast; Z90.13 Acquired absence of bilateral breasts and nipples; Z90.89 Acquired absence of other organs; Z90.710 Acquired absence of both cervix and uterus

== ENCOUNTER → 2021-06-28 | Outpatient (CLI) | payer MEDICARE ==
--- NOTE | 2021-06-28 15:51 | SFUN ---
SLEEP CENTER FOLLOW UP NOTE DATE OF SERVICE: 06/28/2021 This 85-year-old lady has been followed in Sleep Center for treatment of obstructive sleep apnea-hypopnea syndrome. The patient continues to use her CPAP equipment, according to the patient every night, and she sleeps well with the machine, getting all of her necessary supplies. [place] Sleepiness Scale today is 3, which is normal. I checked her CPAP unit. The patient did not bring the cord, so we got information from the website. The patient used it 25/30 nights, which showed 83% of usage, but some nights the patient used it for less than 4 hours. Average usage on the days she used it was 4 hours 46 minutes. The machine is in automatic regimen, pressure 5 to 15 cm of water. It did not change since the previous visit. Leak increased to 45.6, maximal 62.2, which is higher than during the previous visit. Apnea-hypopnea index is 11.8, and during the previous visit with the same parameters, apnea-hypopnea index was only 1.9. Air filter is in very bad condition. MEDICATIONS: 1. Aricept 10 mg once a day. 2. Aspirin 81 mg once a day. 3. Atenolol 50 mg once a day. 4. Simvastatin 20 mg once a day. 5. Cetirizine 10 mg once a day. 6. Hydrochlorothiazide losartan 50 mg once a day. 7. ProAir inhaler. 8. Restasis eyedrops. PHYSICAL EXAMINATION: GENERAL: Pleasant patient in no distress. VITAL SIGNS: BP 129/71, HR 63, RR 16, weight 140.4 pounds, which is 6 pounds less than during the previous visit. Height 5 feet 1-1/2 inches, temperature 97.3, oxygen saturation at room air 98%. HEENT: PERRLA, EOMI, evaluation of oropharynx showed tongue protrudes midline. NECK: Supple, no JVD. Thyroid is not palpable. LUNGS: Clear to percussion and to auscultation. Good air exchange. No wheezing or rhonchi. HEART: S1, S2 regular. ABDOMEN: Soft and nontender. EXTREMITIES: No clubbing or cyanosis. BANKRUPTCY PROCESSOR: Awake, alert, and oriented X3. Cranial nerves 2 to 7 intact. There is no fasciculation or atrophy. noted. No focal deficits observed. Some memory problems. IMPRESSION: 1. Obstructive sleep apnea-hypopnea syndrome. Patient demonstrated borderline compliance with treatment. Apnea-hypopnea index increased compared to her previous visit. Air filter is in very bad shape. 2. Hypertension. 3. Memory problems. 4. Asthma. 5. History of diabetes mellitus. 6. Acid reflux. 7. History of breast carcinoma, status post bilateral mastectomy. 8. Status post tonsillectomy and adenoidectomy. 9. Status post total hysterectomy. 10.Status post bladder repair. 11.Status post nasal surgery for cancer. 12.Status post left shoulder surgery. 13.Status post left eye surgery for cataract. PLAN: 1. I replaced the air filter in CPAP unit. 2. Prescription to replace all supplies, including nasal pillow mask. The patient is using an AirFit P10, small size, heated tube. 3. Sleep hygiene with regular time in bed for at least 7-1/[address] 5. Follow-up visit in 4 months. Thank you very much for allowing me to participate in the management of your patient. Sincerely, Darrel Brown MD, PhD, FAASM Diplomat of [place] [employer] Sleep Medicine Board of [place] [employer] Artificial Fly Tier of [facility] [place] MMODL / IJN: [id number] /
== END | disposition home or self-care (01) ==
LOC: SLEEP 10:58
PROVIDERS: ATTEND Internal Medicine
DX: G47.33 Obstructive sleep apnea (adult) (pediatric) (principal); I10 Essential (primary) hypertension; J45.909 Unspecified asthma, uncomplicated; K21.9 Gastro-esophageal reflux disease without esophagitis; E11.9 Type 2 diabetes mellitus without complications; Z85.3 Personal history of malignant neoplasm of breast; Z90.89 Acquired absence of other organs; Z98.890 Other specified postprocedural states

== ENCOUNTER → 2021-10-25 | Outpatient (CLI) | payer MEDICARE ==
--- NOTE | 2021-10-25 11:35 | P.PN ---
Subjective DATE: [] FOLLOW UP VISIT. Patient with obstructive sleep apnea hypopnea syndrome return to sleep center for follow-up visit. Information from previous visit have been reviewed. Patient is using PAP equipment every night for the whole night, getting PAP supplies in time. The patient does not have significant problems with the mask, PAP unit and humidification. [place] sleepiness scale is 3. I checked PAP unit. Air filter needs to be replaced immediately. PAP unit pressure 5-15, average 7.6 cm H2O. Usage is 90 % for more then 4 hours, average 5.5 hours per night. Leak is 46 l/m, which is increased.. Apnea Hypopnea Index is 9.3, which is slightly increased. Patient sleeps well. MEDICATIONS:1. Aricept 10 mg once a day 2. Aspirin 81 mg once a day 3. Simvastatin 20 mg once a day 4. Atenolol 50 mg once a day 5. Cetirizine 10 mg once a day 6. Hydrochlorothiazidelosartan once a day 7. Pro Air inhaler 8. Restasis eyedrops. During physical exam: GENERAL: A pleasant patient without any distress. VITAL SIGNS: BP 141/65, HR 61, RR 20 , weight 140.4, temperature 97.2, oxygen saturation at room air 96 % . HEENT: PERRLA, EOMI.low position of soft palate. NECK: Supple. No JVD. LUNGS: Clear to percussion and to auscultation. Good air exchange. No wheezing or rhonchi. HEART: S1, S2 regular. ABDOMEN: Soft and nontender.[] EXTREMITIES: No clubbing or cyanosis. FLATWORK FINISHER: Awake, alert, and oriented x3. No focal deficit. Impressions: 1. Obstructive sleep apnea-hypopnea syndrome. Patient demonstrated great compliance with treatment, benefiting from treatment. Air filter needs to be replaced immediately. Patient should replaced to mask too. High leak, that could be the reason for increasing apnea-hypopnea index. 2. Hypertension. 3. Memory problems. 4. History of diabetes mellitus. 5. Asthma. 6. Acid reflux. 7. History of breast see, status post bilateral mastectomy. 8. Status post tonsillectomy and adenoidectomy. 9. Status post total hysterectomy and bladder repair. 10 status post nasal surgery for cancer 11. Status post left eye surgery for cataract. Plan: 1. Continue using PAP equipment every night for the whole night. 2. To change air filter at least 1-2 times per month.To replace air filter today. 3. PAP unit should stay lower then position of the head. 4. Advised patient to remove all remaining water from humidifier canister daily and make it dry after each usage. Refill canister with fresh distilled water before each usage. 5. Sleep hygiene with regular time in bed for at least 8 hours. 6. Precautions related to driving. No driving if feel any sleepiness. 7. I will maintain prescription for PAP supplies including mask, tube, filters. 8. Follow up visit in 6 months or earlier if patient has any problems. Thank you very much for allowing me to participate in the management of your patient. Darrel Brown MD, PhD, FAASM. Diplomat of [employer], Sleep Medicine Board by [place] [employer] Medicine Operator Cavity Pump of [facility] [place]
== END ==
LOC: SLEEP 10:38
PROVIDERS: ATTEND Internal Medicine
DX: G47.33 Obstructive sleep apnea (adult) (pediatric) (principal); I10 Essential (primary) hypertension; R41.3 Other amnesia; E11.9 Type 2 diabetes mellitus without complications; J45.909 Unspecified asthma, uncomplicated; K21.9 Gastro-esophageal reflux disease without esophagitis; Z90.13 Acquired absence of bilateral breasts and nipples; Z90.09 Acquired absence of other part of head and neck; Z98.890 Other specified postprocedural states; Z98.42 Cataract extraction status, left eye; Z90.710 Acquired absence of both cervix and uterus; Z99.89 Dependence on other enabling machines and devices; Z88.1 Allergy status to other antibiotic agents; Z88.2 Allergy status to sulfonamides; Z91.030 Bee allergy status